=== PATIENT | female | born 1995 | race Caucasian/White ===

== ENCOUNTER 2016-12-06 08:59 | Emergency (ER) | payer MEDICAID ==
[2016-12-06 09:04] VITALS: BP 125/84; PULSE 69; RESP 16; TEMP 98.1; O2SAT 98
--- NOTE | 2016-12-06 09:33 | EDPHY ---
H & P Time Seen by Provider: 12/06/16 09:29 HPI/ROS: HPI: This is a 21-year-old female who presents with Chief Complaint: Sore throat Location: Throat Quality: Sore Duration: 1 day Signs and Symptoms: Positive bilateral eye redness, positive bilateral eye green discharge, no difficulty swallowing, no swollen glands, no fever, no cough , no ear pain, no runny nose Timing: Sudden Severity: [id number] Context: Patient history has a history of seasonal allergies. This patient complains of eye redness starting Tuesday that has improved with over-the- counter target eye drops accompanied by itchiness and green discharge that has since resolved. Yesterday she developed a sore throat. She is concerned she may have strep. Denies any recent exposures. Last menstrual period was in April but she is on control pills and states that her periods are irregular. Modifying Factors: Pjiw-cmx-iwqbgrb eyedrops from target with moderate relief of eye redness Comment: ROS: Eyes: No blurred vision Respiratory: No shortness of breath, no cough Cardiovascular: No chest pain Gastrointestinal: No nausea, no vomiting no diarrhea Genitourinary: No dysuria Extremities: No myalgias Neurologic: No weakness, no numbness Skin: No rashes Hematologic: No bruising, no bleeding MEDICAL/SURGICAL HISTORY: Generally healthy. Denies any surgical history Social History: Lives in [facility]. Currently enrolled at [employer] [facility]. Smoking Status: Never smoked Physical Exam: CONSTITUTIONAL: Extremely well-appearing white young adult female; awake and alert, no obvious distress HEENT: Atraumatic and normocephalic, PERRL, EOMI. conjuctiva clear; no ocular discharge Tympanic membranes clear. Oropharynx clear, tonsils 1+ without hypertrophy no erythema, uvula midline no exudate and moist pink mucosa. Airway patent. No lymphadenopathy. No meningismus. Cardiovascular: Normal S1/S2, regular rate, regular rhythm, without murmur rub or gallop. PULMONARY/CHEST: Symmetrical and nontender. Clear to auscultation bilaterally Good air movement. No accessory muscle usage. ABDOMEN: Soft, nondistended, nontender, no rebound, no guarding, no peritoneal signs, no masses or organomegaly. No CVAT. EXTREMITIES: 2/2 pulses, no deformities, no clubbing, no cyanosis or edema. NEUROLOGICAL: no focal neuro deficits. GCS 15. SKIN: Warm and dry, no erythema. no rash. Good capillary refill. Constitutional: Initial Vital Signs Temperature (C) 36.7 C 12/06/16 09:00 Heart Rate 69 12/06/16 09:00 Respiratory Rate 16 12/06/16 09:00 Blood Pressure 125/84 H 12/06/16 09:00 O2 Sat (%) 98 12/06/16 09:00 O2 Delivery Mode Room Air Allergies/Adverse Reactions: amoxicillin [From Augmentin] Allergy (Mild, Verified 12/06/16 09:06) Rash clavulanic acid [From Augmentin] Allergy (Mild, Verified 12/06/16 09:06) Rash Penicillins Allergy (Mild, Verified 12/06/16 09:06) Rash Home Medications: Medication Instructions Recorded Control Pills 12/06/16 Medical Decision Making ED Course/Re-evaluation: Strep test, oral medication Afebrile. No systemic signs. No signs of tonsillar abscess/airway compromise Conjunctivae are completely clear Patient given oral Decadron 4 mg and oral viscous lidocaine for sore throat Strep test is negative. Suspect viral versus allergic component. advised supportive care Differential Diagnosis: Differential diagnosis includes but is not limited to allergic conjunctivitis, viral conjunctivitis, bacterial conjunctivitis, streptococcal pharyngitis, viral pharyngitis. - Data Points Laboratory Results: 12/06/16 12/06/16 Unknown 09:00 Group A Strep Screen NEGATIVE (NEGATIVE) Group A Strep DNA Pending Departure - Departure Disposition: Home, Routine, Self-Care Clinical Impression: Viral pharyngitis, Viral conjunctivitis Condition: Good Instructions: Allergies (ED), Pharyngitis (ED), Conjunctivitis (ED) Additional Instructions: You do not have strep throat. You do not have pinkeye or bacterial conjunctivitis Please discard all makeup that you have been using. Please see not wear makeup and till all symptoms of conjunctivitis or resolved. Continue to use ccjb-jyu-oickwum eyedrops as needed. Take Zyrtec/Claritin/Pau as needed for eye itchiness. Take ibuprofen 600-800 mg 3 times a day with food as needed for sore throat, fever. Perform salt water gargles as needed throughout the day for sore throat. Referrals: [facility],. [Clinic] - As per Instructions NONE *PRIMARY CARE P,. [Primary Care Provider] - 2-3 days, if not improved
[2016-12-06] MEDS ORDERED: DEXAMETHASONE 4 MG TAB PO ONE (09:34)
[2016-12-06] MEDS ORDERED: LIDOCAINE 2% VISCOUS 15 ML UDCUP PO ONE (09:34)
== END 2016-12-06 09:48 | disposition home or self-care (01) ==
DX: J02.8 Acute pharyngitis due to other specified organisms (principal); B97.89 Other viral agents as the cause of diseases classified elsewhere; B30.9 Viral conjunctivitis, unspecified

== ENCOUNTER 2017-02-07 10:36 | Emergency (ER) | payer MEDICAID ==
[2017-02-07 10:56] VITALS: BP 125/79; PULSE 84; RESP 18; TEMP 98.4; O2SAT 96
== END 2017-02-07 13:54 | disposition left against medical advice (07) ==
DX: Z53.21 Procedure and treatment not carried out due to patient leaving prior to being seen by health care provider (principal)

== ENCOUNTER 2017-06-14 01:39 | Emergency (ER) | payer MEDICAID ==
--- NOTE | 2017-06-14 01:44 | EDPHY ---
H & P Time Seen by Provider: 06/14/17 01:45 HPI/ROS: HPI CHIEF COMPLAINT: Burning chest pain, anxiety HISTORY OF PRESENT ILLNESS: This patient is a 21-year-old female she presents emergency room with discomfort in her chest she describes a burning sensation on the right side of her chest. It goes up to her throat. She states been present and constant for 2 days. She states on Tuesday she did some cocaine on Tuesday she developed this discomfort in her chest. She does a eyes any numbness or tingling denies any focal weakness. Denies shortness of breath. Denies pleuritic pain. Denies any recent illness specifically denies fever cough or congestion. She presents emergency room stating that she is very anxious. She has burning sensation consult in the right side of her chest. Denies any lower abdominal pain. No history of DVT or PE but is on control. Past Medical History: Denies significant medical history Past Surgical History: Denies significant surgical history Social History: Cocaine this weekend. [employer] student. Denies other drugs or alcohol. Family History: Noncontributory ROS REVIEW OF SYSTEMS: A comprehensive 10 point review of systems is otherwise negative aside from elements mentioned in the history of present illness. Exam Constitutional anxious, tearful, triage nursing summary reviewed, vital signs reviewed, awake/alert. Eyes normal conjunctivae and sclera, EOMI, PERRLA. HENT normal inspection, atraumatic, moist mucus membranes, no epistaxis, neck supple/ no meningismus, no raccoon eyes. Respiratory clear to auscultation bilaterally, normal breath sounds, no respiratory distress, no wheezing. Cardiovascular rate normal, regular rhythm, no murmur, no edema, distal pulses normal. Gastrointestinal soft, non-tender, no rebound, no guarding, normal bowel sounds, no distension, no pulsatile mass. Genitourinary no CVA tenderness. Musculoskeletal no midline vertebral tenderness, full range of motion, no calf swelling, no tenderness of extremities, no meningismus, good pulses, neurovascularly intact. Skin pink, warm, & dry, no rash, skin atraumatic. Neurologic awake, alert and oriented x 3, AAOx3, moves all 4 extremities equally, motor intact, sensory intact, CN II-XII intact, normal cerebellar, normal vision, normal speech. Psychiatric anxious Heme/Lymph/Immune no lymphadenopathy. Differential diagnosis includes but is not limited to: Anxiety, ACS, atypical chest pain, pneumothorax, pneumonia, pulmonary embolism, aortic dissection, congestive heart failure, tumor, musculoskeletal pain, esophageal pain, GERD, peptic ulcer disease, pancreatitis Medical Decision Making: Plan for this patient IV establishment full monitor tech obtain blood work, EKG and troponin, check D-dimer, chest x-ray, full monitor tech, GI cocktail for pain, IV Ativan for anxiety and re-evaluate. Re-evaluation: EKG interpretation by me on record in [email or web address] system. Impression time of EKG 1:48 a.m., sinus rhythm rate of [address] No ST depression. No significant T-wave abnormalities. No signs of cardiac arrhythmia. Otherwise unremarkable EKG. ED x-ray chest one view: Negative for acute cardiopulmonary disease. 0310: Re-examination at this time this patient is feeling much better after IV Ativan in GI cocktail. She states that her anxiety and chest discomfort is greatly improved. Here in the emergency room her troponin is noted be negative, her EKG is nonischemic. And her D-dimer is negative. Chest x-ray is unremarkable no evidence of pneumothorax. No evidence of widened mediastinum. She is feeling better after GI cocktail and Ativan. Most likely cause of chest discomfort is GI related versus anxiety. EKG interpretation by me on record in [email or web address] system. Impression time of EKG 3:24 a.m. This is a repeat EKG this is sinus rhythm rate of [address] elevation no ST depression no significant T-wave abnormalities no prolonged intervals. Unremarkable EKG. 0516: 2nd troponin negative. Patient resting comfortably without any chest pain or shortness of breath. Vital signs are stable. 2 nonischemic EKGs. Negative D-dimer. Feeling much better after anxiety medicine and GI cocktail she would like to go home. Return precautions discussed with her she understands return if she develops worsening chest pain shortness of breath fever vomiting. [place] diet over the next 24-48 hours. Refrain from doing cocaine. Source: Patient - Medical/Surgical History Hx Asthma: No Hx Chronic Respiratory Disease: No Hx Diabetes: No Hx Cardiac Disease: No Hx Renal Disease: No Hx Cirrhosis: No Hx Alcoholism: No Hx HIV/AIDS: No Hx Splenectomy or Spleen Trauma: No Other PMH: recurrent strep throat - Social History Smoking Status: Never smoked Constitutional: Initial Vital Signs Temperature (C) 36.9 C 06/14/17 01:40 Heart Rate 87 06/14/17 01:40 Respiratory Rate 18 06/14/17 01:40 Blood Pressure 151/96 H 06/14/17 01:40 O2 Sat (%) 99 06/14/17 01:40 O2 Delivery Mode Room Air Allergies/Adverse Reactions: amoxicillin [From Augmentin] Allergy (Mild, Verified 06/14/17 01:54) Rash clavulanic acid [From Augmentin] Allergy (Mild, Verified 06/14/17 01:54) Rash Penicillins Allergy (Mild, Verified 06/14/17 01:54) Rash Home Medications: Medication Instructions Recorded Control Pills 12/06/16 Medical Decision Making - Data Points Laboratory Results: Laboratory Results 06/14/17 01:54 06/14/17 01:54 06/14/17 06/14/17 06/14/17 04:45 01:54 01:54 WBC RBC Hgb Hct MCV MCH MCHC RDW Plt Count MPV Neut % (Auto) Lymph % (Auto) [place] % (Auto) Eos % (Auto) Baso % (Auto) Nucleat RBC Rel Count Absolute Neuts (auto) Absolute Lymphs (auto) Absolute Monos (auto) Absolute Eos (auto) Absolute Basos (auto) Absolute Nucleated RBC Immature Gran % Immature Gran # D-Dimer < 0.27 ug/mLFEU ug/mLFEU (0.00-0.50) Sodium Potassium Chloride Carbon Dioxide Anion Gap BUN Creatinine Estimated GFR Glucose Calcium Magnesium Total Bilirubin Conjugated Bilirubin Unconjugated Bilirubin AST ALT Alkaline Phosphatase Creatine Kinase CK-MB (CK-2) Fraction Troponin I < 0.012 ng/mL ng/mL (0.000-0.034) NT-Pro-B Natriuret Pep Total Protein Albumin Lipase Beta HCG, Qual NEGATIVE 06/14/17 06/14/17 01:54 01:54 WBC 8.85 10^3/uL 10^3/uL (3.80-9.50) RBC 4.31 10^6/uL 10^6/uL (4.18-5.33) Hgb 13.0 g/dL g/dL (12.6-16.3) Hct 38.2 % % (38.0-47.0) MCV 88.6 fL fL (81.5-99.8) MCH 30.2 pg pg (27.9-34.1) MCHC 34.0 g/dL g/dL (32.4-36.7) RDW 12.0 % % (11.5-15.2) Plt Count 186 10^3/uL 10^3/uL (150-400) MPV 9.8 fL fL (8.7-11.7) Neut % (Auto) 42.6 % % (39.3-74.2) Lymph % (Auto) 46.3 % H % (15.0-45.0) [place] % (Auto) 8.7 % % (4.5-13.0) Eos % (Auto) 1.9 % % (0.6-7.6) Baso % (Auto) 0.3 % % (0.3-1.7) Nucleat RBC Rel Count 0.0 % % (0.0-0.2) Absolute Neuts (auto) 3.76 10^3/uL 10^3/uL (1.70-6.50) Absolute Lymphs (auto) 4.10 10^3/uL H 10^3/uL (1.00-3.00) Absolute Monos (auto) 0.77 10^3/uL 10^3/uL (0.30-0.80) Absolute Eos (auto) 0.17 10^3/uL 10^3/uL (0.03-0.40) Absolute Basos (auto) 0.03 10^3/uL 10^3/uL (0.02-0.10) Absolute Nucleated RBC 0.00 10^3/uL 10^3/uL (0-0.01) Immature Gran % 0.2 % % (0.0-1.1) Immature Gran # 0.02 10^3/uL 10^3/uL (0.00-0.10) D-Dimer Sodium 140 mEq/L mEq/L (135-145) Potassium 4.0 mEq/L mEq/L (3.5-5.2) Chloride 107 mEq/L mEq/L (97-110) Carbon Dioxide 23 mEq/l mEq/l (22-31) Anion Gap 10 mEq/L mEq/L (8-16) BUN 11 mg/dL mg/dL (7-23) Creatinine 0.7 mg/dL mg/dL (0.6-1.0) Estimated GFR > 60 Glucose 82 mg/dL mg/dL (70-100) Calcium 9.4 mg/dL mg/dL (8.5-10.4) Magnesium 1.7 mg/dL mg/dL (1.6-2.3) Total Bilirubin 0.2 mg/dL mg/dL (0.1-1.4) Conjugated Bilirubin 0.2 mg/dL mg/dL (0.0-0.5) Unconjugated Bilirubin 0.0 mg/dL mg/dL (0.0-1.1) AST 26 IU/L IU/L (14-46) ALT 37 IU/L IU/L (9-52) Alkaline Phosphatase 52 IU/L IU/L (38-126) Creatine Kinase 135 IU/L IU/L (0-156) CK-MB (CK-2) Fraction 1.29 ng/mL ng/mL (0.00-3.19) Troponin I < 0.012 ng/mL ng/mL (0.000-0.034) NT-Pro-B Natriuret Pep 161 pg/mL H pg/mL (0-125) Total Protein 6.8 g/dL g/dL (6.3-8.2) Albumin 3.8 g/dL g/dL (3.5-5.0) Lipase 87 IU/L IU/L (23-300) Beta HCG, Qual Medications Given: Discontinued Medications Al Hydroxide/Mg Hydroxide (Maalox Susp) 30 ml PO ONCE ONE Stop: 06/14/17 01:49 Last Admin: 06/14/17 01:55 Dose: 30 ml Hyoscyamine Sulfate (Levsin, Hyomax-Sl) 0.25 mg PO ONCE ONE Stop: 06/14/17 01:49 Last Admin: 06/14/17 01:55 Dose: 0.25 mg Sodium Chloride (Ns) 1,000 mls @ 0 mls/hr IV EDNOW ONE; Wide Open PRN Reason: Protocol Stop: 06/14/17 01:49 Last Admin: 06/14/17 01:55 Dose: 1,000 mls Ketorolac Tromethamine (Toradol) 15 mg IVP EDNOW ONE Stop: 06/14/17 03:10 Last Admin: 06/14/17 03:18 Dose: 15 mg Lidocaine (Lidocaine 2% Viscous) 15 ml PO ONCE ONE Stop: 06/14/17 01:49 Last Admin: 06/14/17 01:55 Dose: 15 ml Lorazepam (Ativan Injection) 0.5 mg IVP EDNOW ONE Stop: 06/14/17 01:50 Last Admin: 06/14/17 01:55 Dose: 0.5 mg Departure - Departure Disposition: Home, Routine, Self-Care Clinical Impression: Anxiety Chest pain Qualifiers: Chest pain type: unspecified Qualified Code(s): R07.9 - Chest pain, unspecified Condition: Good Instructions: Chest Pain (ED), Anxiety (ED) Additional Instructions: 1. Return emergency room if you have worsening pain shortness of breath anxiety you do not feel well. Referrals: NONE *PRIMARY CARE P,. [Primary Care Provider] - As per Instructions
[2017-06-14] MEDS ORDERED: LIDOCAINE 2% VISCOUS 15 ML UDCUP PO ONE (01:48)
[2017-06-14] MEDS ORDERED: MAG HYDROX/AL HYDROX/SIMETH 30 ML UDCUP PO ONE (01:48)
[2017-06-14] MEDS ORDERED: HYOSCYAMINE SULFATE 0.125 MG TAB PO ONE (01:48)
[2017-06-14] MEDS ORDERED: NS 1,000 ML IV ONE (01:48)
[2017-06-14] MEDS ORDERED: LORazepam 2 MG/ML INJ IVP ONE (01:49)
--- NOTE | 2017-06-14 01:50 | CPEKG ---
Heart Rate: 85 RR Interval: 706 P-R Interval: 152 QRSD Interval: 84 QT Interval: 404 QTC Interval: 481 P [place]: 67 QRS [place]: 85 T Wave [place]: 26 EKG Severity - BORDERLINE ECG - EKG Impression: SINUS RHYTHM EKG Impression: BORDERLINE PROLONGED QT INTERVAL Electronically Signed By: Dragan Tong 15-Jun-2017 09:23:10
[2017-06-14 02:12] LABS: PLATELET COUNT 186 10^3/uL (150-400)
[2017-06-14 02:19] LABS: CREATINE KINASE 135 IU/L (0-156)
[2017-06-14] MEDS ORDERED: KETOROLAC 15 MG/1 ML SDV IVP ONE (03:09)
--- NOTE | 2017-06-14 03:26 | CPEKG ---
Heart Rate: 53 RR Interval: 1132 P-R Interval: 156 QRSD Interval: 82 QT Interval: 452 QTC Interval: 425 P [place]: 48 QRS [place]: 75 T Wave [place]: 23 EKG Severity - NORMAL ECG - EKG Impression: SINUS RHYTHM Electronically Signed By: Ignacio Castro 14-Jun-2017 06:41:18
[2017-06-14 05:46] VITALS: BP 120/53; PULSE 63; RESP 16; TEMP 97.9; O2SAT 97
== END 2017-06-14 05:37 | disposition home or self-care (01) ==
DX: R07.9 Chest pain, unspecified (principal); F41.9 Anxiety disorder, unspecified; E86.9 Volume depletion, unspecified
CPT/HCPCS: 96374; J1885; J2060

== ENCOUNTER 2017-06-23 13:57 | Emergency (ER) | payer MEDICAID ==
[2017-06-23 14:12] VITALS: O2SAT 97
--- NOTE | 2017-06-23 14:26 | CPEKG ---
Heart Rate: 56 RR Interval: 1071 P-R Interval: 148 QRSD Interval: 84 QT Interval: 472 QTC Interval: 456 P [place]: 36 QRS [place]: 69 T Wave [place]: 36 EKG Severity - NORMAL ECG - EKG Impression: SINUS RHYTHM Electronically Signed By: Karley Burrows 23-Jun-2017 14:52:44
--- NOTE | 2017-06-23 14:53 | EDPHY ---
H & P Stated Complaint: CP, L arm numbness Time Seen by Provider: 06/23/17 14:34 HPI/ROS: CHIEF COMPLAINT: Continued chest and epigastric pain HISTORY OF PRESENT ILLNESS: 21-year-old female originally seen emergency department 9 days ago for complaints of chest pain, anxiety after using cocaine. She was evaluated in the emergency department at that time with negative troponin, negative D-dimer the EKG discharged home. She states that she has had continued epigastric and chest pain ever since. She also notes a small area of numbness on her left volar forearm. She has had no exertional chest pain. She exercises regularly and does not experience exertional chest pain or dyspnea out of proportion to activity. Denies peripheral edema or cramping. Has not used cocaine in 2 weeks. No neck pain. Numbness is not reproducible with movement of her arm or neck or head. REVIEW OF SYSTEMS: A ten point review of systems was performed and is negative with the exception of the items mentioned in the HPI PAST MEDICAL & SURGICAL HISTORY: No pertinent medical or surgical history SOCIAL HISTORY: Multiple episodes of cocaine use over the past few weeks, last used 2 weeks ago FAMILY HISTORY: No family history of premature coronary artery disease, coagulopathy or sudden unexplained . PHYSICAL EXAM (Prior to examination, patient consented to physical exam, hands were washed and my usual and customary physical exam procedures followed) 1) GENERAL: Well-developed, well-nourished, alert and oriented. Appears to be in no acute distress. 2) HEAD: Normocephalic, atraumatic 3) HEENT: Pupils equal, round, reactive to light bilaterally. Sclera anicteric. Nasopharynx, oropharynx, clear, no lesions. Ears bilaterally with normal tympanic membranes. 4) NECK: Full range of motion, no meningeal signs. No midline pain. Full range of motion which does not elicit neck pain or peripheral paresthesia, weakness, numbness. No carotid bruit 5) LUNGS: Clear auscultation bilaterally, no wheezes, no rhonchi, no retractions. 6) HEART: Regular rate and rhythm, no murmur, no heave, no gallop. 7) ABDOMEN: No guarding, no rebound, no focal tenderness, negative McBurney's, negative Grossman's, negative Rovsing's, negative peritoneal sign, 8) MUSCULOSKELETAL: Moving all extremities, no focal areas of tenderness, no obvious trauma. No peripheral edema or discoloration. Negative Homans no palpable cord. 9) BACK: No CVA tenderness, no midline vertebral tenderness, no fluctuance, no step-off, no obvious trauma, no visual or palpable abnormality. 10) SKIN: No rash, no petechiae. 11) Psychiatric: Patient is oriented X 3, there is no agitation. 12) NEURO: Awake, alert, and oriented to person, place and time. Left upper extremity: Left antecubital fossa ecchymosis from prior emergency department visit. Along the C7 nerve root the patient has decreased sensation to sharp and dull. Answers questions appropriately. There were no obvious focal neurologic abnormalities. No cerebellar dysfunction. Cranial nerves 2 through to 12 intact. Normal steady gait. Upper and lower extremities bilaterally with strength 5 / 5, reflexes 2+. DIFFERENTIAL DIAGNOSIS: Differential chest - Personal History LMP (Females 10-55): Extended Cycle BCP/Inj Current Tetanus/Diphtheria Vaccine: Yes Current Tetanus Diphtheria and Acellular Pertussis (TDAP): Yes - Medical/Surgical History Hx Asthma: No Hx Chronic Respiratory Disease: No Hx Diabetes: No Hx Cardiac Disease: No Hx Renal Disease: No Hx Cirrhosis: No Hx Alcoholism: No Hx HIV/AIDS: No Hx Splenectomy or Spleen Trauma: No Other PMH: recurrent strep throat - Social History Smoking Status: Current some day smoker Constitutional: Initial Vital Signs Temperature (C) 36.9 C 06/23/17 14:10 Heart Rate 58 L 06/23/17 14:10 Respiratory Rate 16 06/23/17 14:10 Blood Pressure 123/74 H 06/23/17 14:10 O2 Sat (%) 97 06/23/17 14:10 O2 Delivery Mode Room Air Allergies/Adverse Reactions: amoxicillin [From Augmentin] Allergy (Mild, Verified 06/23/17 14:10) Rash clavulanic acid [From Augmentin] Allergy (Mild, Verified 06/23/17 14:10) Rash Penicillins Allergy (Mild, Verified 06/23/17 14:10) Rash Home Medications: Medication Instructions Recorded Control Pills 12/06/16 Pantoprazole Sodium [Protonix 40mg 40 mg PO DAILY #30 tab 03/15/18 (RX)] Medical Decision Making - Diagnostics Imaging Results: Imaging Impressions Chest X-Ray 06/23/17 14:35 Impression: Normal chest x-ray. ED Course/Re-evaluation: 2:53 p.m.: I reviewed the patient's old medical records. Plan will be diagnostic studies from the emergency department. Care of patient under supervision of secondary supervising physician Dr Campa with whom I discussed case. 4:02 p.m.: Re-evaluation. Patient appears well overall. Discussed with her imaging results showing normal troponin, normal D-dimer, normal chest x-ray and EKG. She has been symptomatic for some time and I think that a negative D- dimer in patient with intermediate pretest probability adequately excludes pulmonary embolus. Doubt [place]. Discussed possible etiologies for symptoms including, but not limited to, esophageal reflux. Doubt acute pancreatitis. She has been given a GI cocktail. Recommend starting on a proton pump inhibitor. Recommend follow up with Gastroenterology. Recommend cocaine cessation. Regarding the patient's small area of numbness approximately C7, I do not think that emergent MRI of the neck is indicated in absence of neck pain or weakness. However she will need follow-up for this. She feels comfortable with this plan. All questions and concerns addressed by myself - Data Points Laboratory Results: Laboratory Results 06/23/17 15:06 06/23/17 15:00 06/23/17 06/23/17 06/23/17 15:06 15:00 15:00 WBC 6.09 10^3/uL 10^3/uL (3.80-9.50) RBC 4.67 10^6/uL 10^6/uL (4.18-5.33) Hgb 14.1 g/dL g/dL (12.6-16.3) Hct 40.8 % % (38.0-47.0) MCV 87.4 fL fL (81.5-99.8) MCH 30.2 pg pg (27.9-34.1) MCHC 34.6 g/dL g/dL (32.4-36.7) RDW 12.2 % % (11.5-15.2) Plt Count 214 10^3/uL 10^3/uL (150-400) MPV 9.4 fL fL (8.7-11.7) Neut % (Auto) 51.3 % % (39.3-74.2) Lymph % (Auto) 36.9 % % (15.0-45.0) [place] % (Auto) 9.9 % % (4.5-13.0) Eos % (Auto) 1.3 % % (0.6-7.6) Baso % (Auto) 0.3 % % (0.3-1.7) Nucleat RBC Rel Count 0.0 % % (0.0-0.2) Absolute Neuts (auto) 3.12 10^3/uL 10^3/uL (1.70-6.50) Absolute Lymphs (auto) 2.25 10^3/uL 10^3/uL (1.00-3.00) Absolute Monos (auto) 0.60 10^3/uL 10^3/uL (0.30-0.80) Absolute Eos (auto) 0.08 10^3/uL 10^3/uL (0.03-0.40) Absolute Basos (auto) 0.02 10^3/uL 10^3/uL (0.02-0.10) Absolute Nucleated RBC 0.00 10^3/uL 10^3/uL (0-0.01) Immature Gran % 0.3 % % (0.0-1.1) Immature Gran # 0.02 10^3/uL 10^3/uL (0.00-0.10) D-Dimer < 0.27 ug/mLFEU ug/mLFEU (0.00-0.50) Sodium 137 mEq/L mEq/L (135-145) Potassium 4.0 mEq/L mEq/L (3.5-5.2) Chloride 100 mEq/L mEq/L (97-110) Carbon Dioxide 27 mEq/l mEq/l (22-31) Anion Gap 10 mEq/L mEq/L (8-16) BUN 12 mg/dL mg/dL (7-23) Creatinine 0.8 mg/dL mg/dL (0.6-1.0) Estimated GFR > 60 Glucose 80 mg/dL mg/dL (70-100) Calcium 9.1 mg/dL mg/dL (8.5-10.4) Total Bilirubin 0.5 mg/dL mg/dL (0.1-1.4) Conjugated Bilirubin 0.3 mg/dL mg/dL (0.0-0.5) Unconjugated Bilirubin 0.2 mg/dL mg/dL (0.0-1.1) AST 20 IU/L IU/L (14-46) ALT 33 IU/L IU/L (9-52) Alkaline Phosphatase 45 IU/L IU/L (38-126) Troponin I < 0.012 ng/mL ng/mL (0.000-0.034) Total Protein 7.3 g/dL g/dL (6.3-8.2) Albumin 4.2 g/dL g/dL (3.5-5.0) Lipase 54 IU/L IU/L (23-300) Medications Given: Discontinued Medications Al Hydroxide/Mg Hydroxide (Maalox Susp) 30 ml PO ONCE ONE Stop: 06/23/17 15:00 Last Admin: 06/23/17 15:05 Dose: 30 ml Hyoscyamine Sulfate (Levsin, Hyomax-Sl) 0.25 mg PO ONCE ONE Stop: 06/23/17 15:00 Last Admin: 06/23/17 15:05 Dose: 0.25 mg Lidocaine (Lidocaine 2% Viscous) 15 ml PO ONCE ONE Stop: 06/23/17 15:00 Last Admin: 06/23/17 15:06 Dose: 15 ml Departure - Departure Disposition: Home, Routine, Self-Care Clinical Impression: Chest pain Qualifiers: Chest pain type: unspecified Qualified Code(s): R07.9 - Chest pain, unspecified Condition: Good Instructions: Chest Pain (ED) Additional Instructions: Seek medical attention if you develop new or worsening chest pain, if you develop new or worsening shortness of breath, or any other symptoms that concern you. Referrals: Joseph Carrasquillo MD [Medical Doctor] - 5-7 days, call for appt. Prescriptions: Pantoprazole Sodium [Protonix 40mg (RX)] 40 mg PO DAILY #30 tab
[2017-06-23] MEDS ORDERED: MAG HYDROX/AL HYDROX/SIMETH 30 ML UDCUP PO ONE (14:59)
[2017-06-23] MEDS ORDERED: HYOSCYAMINE SULFATE 0.125 MG TAB PO ONE (14:59)
[2017-06-23] MEDS ORDERED: LIDOCAINE 2% VISCOUS 15 ML UDCUP PO ONE (14:59)
[2017-06-23 15:14] LABS: PLATELET COUNT 214 10^3/uL (150-400)
[2017-06-23 15:47] VITALS: PULSE 51
[2017-06-23 16:43] VITALS: BP 113/64; RESP 18; TEMP 98.1
== END 2017-06-23 16:47 | disposition home or self-care (01) ==
DX: R07.9 Chest pain, unspecified (principal); F17.200 Nicotine dependence, unspecified, uncomplicated